=== PATIENT | female | born 1975 | race Hispanic/Latino ===

== ENCOUNTER → 2018-03-21 | Outpatient (CLI) | payer OTHER | END | disposition home or self-care (01) | LOC: RAH 12:42 | PROVIDERS: ATTEND Internal Medicine Cardiovascular Disease | DX: Z13.6 Encounter for screening for cardiovascular disorders (principal) | CPT/HCPCS: 75571 ==

== ENCOUNTER 2019-01-10 07:30 | Observation (INO) | payer OTHER ==
[2019-01-09 15:55] VITALS: BP 141/71
[2019-01-09 16:34] LABS: BASOPHILS % (AUTO) 1.3 % (0.0-5.0); EOSINOPHILS % (AUTO) 1.7 % (0.0-8.0); HEMATOCRIT 35.1 % (36-48); MEAN CORPUSCULAR HEMOGLOBIN 23.6 pg (27.0-33.0); MEAN CORPUSCULAR HGB CONC 31.5 g/dL (32.0-36.0); MEAN CORPUSCULAR VOLUME 74.9 fL (79-99); MONOCYTES % (AUTO) 7.6 % (3.0-13.0); NEUTROPHILS % (AUTO) 57.4 % (40.0-77.0); PLATELET COUNT (AUTO) 301 K/uL (130-400); RED BLOOD CELL COUNT(AUTO) 4.68 MIL/uL (4.00-5.50); RED CELL DISTRIBUTION WIDTH 19.7 % (11.0-15.5); WHITE BLOOD COUNT (AUTO) 7.9 K/uL (4.8-10.8)
[2019-01-09 16:43] LABS: APPEARANCE,URINE Clear (CLEAR); BILIRUBIN,URINE Negative (NEGATIVE); COLOR,URINE Yellow (YELLOW); GLUCOSE, URINE (UA) Negative (NEGATIVE); KETONES,URINE Negative (NEGATIVE); LEUKOCYTE ESTERASE ,URINE Negative (NEGATIVE); NITRATE,URINE Negative (NEGATIVE); OCCULT BLOOD,URINE Negative (NEGATIVE); PH,URINE 6.5 (5.0-8.0); PROTEIN,URINE Negative (NEGATIVE)
[2019-01-09 16:44] LABS: CREATININE 0.7 mg/dL (0.5-1.5); POTASSIUM 3.3 mmol/L (3.5-5.1)
[2019-01-09] MEDS: CEFAZOLIN SODIUM 1 GM VIAL IVP SCH (20:45)
[~2019-01-10] VITALS: Ht 161.3 cm; Wt 73.0 kg
[2019-01-10] VITALS (19 sets, daily range): BP systolic 102–129; BP diastolic 54–94
[~2019-01-10 07:30] MED LIST: FERROUS SULFATE PO; JANUMET PO; LACTATED RINGERS 1000ML 1,000 ML IV SCH; PANTOPRAZOLE PO; PROGESTERON PO
[2019-01-10] MEDS ORDERED: LIDOCAINE 1%-EPI 1:100,000 20 ML VIAL IJ ONE (08:21)
[2019-01-10] MEDS ORDERED: ESTROGENS,CONJUGATED 0.625 MG/GM 42.5 GM VAG CRM VG ONE (08:21)
[2019-01-10] MEDS ORDERED: SODIUM CHLORIDE 0.9% 1000ML 1,000 ML IV ONE (08:38)
[2019-01-10] MEDS: CALDOLOR 800MG+NS 250ML 250 ML IV SCH ×3 (08:46→19:04)
[2019-01-10] MEDS ORDERED: PROG100C11 PO (08:51)
[2019-01-10] MEDS ORDERED: LIDOCAINE PF 2% 5ML ABBOJECT ONE (08:51)
[2019-01-10] MEDS ORDERED: DEXAMETHASONE SOD PHOSPHATE 10MG/ML 1ML VIAL ONE (08:51)
[2019-01-10] MEDS ORDERED: PANT40TA25 PO (08:51)
[2019-01-10] MEDS ORDERED: SITA1TAB6 PO (08:51)
[2019-01-10] MEDS ORDERED: ONDANSETRON HCL 4 MG/2 ML VIAL ONE (08:51)
[2019-01-10] MEDS ORDERED: MIDAZOLAM HCL 1 MG/ML 2ML VIAL ONE (08:51)
[2019-01-10] MEDS ORDERED: FERR325T22 PO (08:51)
[2019-01-10] MEDS ORDERED: FENTANYL CITRATE PF 50 MCG/1 ML 2ML VIAL ONE (08:52)
[2019-01-10] MEDS ORDERED: PROPOFOL 10 MG/ML 20ML VIAL IV ONE (08:52)
[2019-01-10] MEDS ORDERED: ROCURONIUM 10MG/1ML SYR 10 MG/ML ML ONE (08:55)
[2019-01-10] MEDS: CEFAZOLIN SODIUM 1 GM VIAL IVP SCH ×3 (09:05→22:06)
[2019-01-10] MEDS ORDERED: NEOSTIGMINE 5MG/5ML SYR IV ONE (10:06)
[2019-01-10] MEDS ORDERED: GLYCOPYRROLATE 1 MG/5 ML SYRINGE ONE (10:06)
[2019-01-10] MEDS ORDERED: PROMETHAZINE HCL 25 MG/ML 1ML AMPULE IM PRN ×2 (10:30)
[2019-01-10] MEDS ORDERED: SIMETHICONE 80 MG TAB.CHEW PO PRN (10:30)
[2019-01-10] MEDS ORDERED: DOCUSATE SODIUM 100 MG CAP PO PRN (10:30)
[2019-01-10] MEDS ORDERED: MEPERIDINE-PF 75 MG/ML SYG IM PRN (10:30)
[2019-01-10] MEDS ORDERED: BISACODYL 10 MG SUPP.RECT RC PRN (10:30)
[2019-01-10] MEDS ORDERED: MORPHINE SULFATE 4 MG/1ML SYG ONE (10:40)
[2019-01-10] MEDS: DEXTROSE 5 %-0.45 % NACL 1,000 ML IV PRN ×2 (11:24→19:02)
[2019-01-10] MEDS: ACETAMINOPHEN-CODEINE 300/30MG TAB PO PRN ×2 (11:39→14:18)
[2019-01-10] MEDS: SITAGLIPTIN PHOS PO SCH (21:51)
[2019-01-10] MEDS: METFORMIN HCL PO SCH (21:51)
[2019-01-11] MEDS: CALDOLOR 800MG+NS 250ML 250 ML IV SCH (02:16)
[2019-01-11 03:40] VITALS: BP 102/65
[2019-01-11] MEDS: CEFAZOLIN SODIUM 1 GM VIAL IVP SCH ×2 (06:00→06:16)
[2019-01-11 06:49] LABS: HEMATOCRIT 34.6 % (36-48); MEAN CORPUSCULAR HEMOGLOBIN 23.5 pg (27.0-33.0); MEAN CORPUSCULAR VOLUME 75.9 fL (79-99); PLATELET COUNT (AUTO) 257 K/uL (130-400); RED BLOOD CELL COUNT(AUTO) 4.55 MIL/uL (4.00-5.50); RED CELL DISTRIBUTION WIDTH 19.3 % (11.0-15.5)
[2019-01-11] MEDS ORDERED: PANTOPRAZOLE SODIUM 40 MG TABLET.DR PO SCH (07:30)
[2019-01-11 07:44] VITALS: BP 117/75
[2019-01-11] MEDS: METFORMIN HCL PO SCH (09:00)
[2019-01-11] MEDS: SITAGLIPTIN PHOS PO SCH (09:00)
[2019-01-11] MEDS ORDERED: IBUPROFEN 800 MG TAB PO SCH (10:30)
[2019-01-11 11:37] VITALS: BP 121/79
--- NOTE | 2019-01-11 11:40 | NUR ---
DISCHARGE PT LEFT UNIT VIA WHEELCHAIR, ACCOMPANIED BY SPOUSE. DENIED PAIN AND HAD NO COMPLAINTS. PT PASSING FLATUS. TRANSPORTED BY PERSONAL VEHICLE.
== END 2019-01-11 11:40 | disposition home or self-care (01) ==
LOC: DAH 07:30 → INTOOBSV 07:31 → DAH 07:31 → DAHIP 07:31 → WSH 11:15
DX: N92.0 Excessive and frequent menstruation with regular cycle (principal); D50.0 Iron deficiency anemia secondary to blood loss (chronic); N81.4 Uterovaginal prolapse, unspecified; Z79.899 Other long term (current) drug therapy
CPT/HCPCS: 36415 ×2; 58260; 80048; 81003; 82948 ×2; 84703; 85025; 85027; 86850; 86900; 86901; 88307; 96365; 96366 ×3; 96375; 96376; A4215 ×3; A4221 ×2; A4222 ×2; A4223 ×2; A4344; A4600; A4663; A4930; A6260; G0378 ×21; J0690 ×3; J1100; J1741 ×3; J2001; J2250; J2270; J2405; J2704; J2710; J3010; J3490 ×2; J7030 ×2